=== PATIENT | male | born 1980 | race Caucasian/White ===

== ENCOUNTER 2022-03-12 08:44 | Emergency (ER) | payer SELFPAY ==
[2022-03-12 09:19] LABS: Absolute Lymphocytes (CBC) 1.2 K/uL (0.7-4.9); Hematocrit 41.5 % (39.6-49.0); Lymphocytes % 23.5 % (15.3-44.8); MPV 8.5 fL (7.6-11.3); RBC Red Blood Cell Count 4.61 M/uL (4.33-5.43)
[2022-03-12 09:21] LABS: Protime INR 0.92
[2022-03-12 09:27] LABS: Albumin 3.3 g/dL (3.4-5.0); Bilirubin Direct 0.1 mg/dL (0-0.2); Bilirubin Total 0.3 mg/dL (0.2-1.0); Potassium 3.7 mmol/L (3.5-5.1); Protein, Total 6.5 g/dL (6.4-8.2); Troponin High Sensitivity 13.4 pg/mL (<58.9)
[2022-03-12 09:56] LABS: SARS-COV-2 RT PCR NEGATIVE (NEGATIVE)
--- NOTE | 2022-03-12 10:14 | RAD REPORT ---
EXAM DESCRIPTION: Yahir Single View03/12/2022 9:48 am CLINICAL HISTORY: Chest pain COMPARISON: none FINDINGS: The lungs appear clear of acute infiltrate. The heart is normal size IMPRESSION: No acute abnormalities displayed
--- NOTE | 2022-03-12 10:35 | ER ---
Nurse's Notes [facility] Name: Osman Patel Age: 41 yrs Sex: Male : 1980 Arrival Date: 03/12/2022 Time: 08:47 Bed 4 Private MD: Diagnosis: Chest pain, unspecified Presentation: 03/12 08:58 Chief complaint: EMS states: pt c/o chest pain since last night , worse this morning, iw he was pale and clammy on scene, reports pain as discomfort and pressure, no medical hx , gave ASA 81 and 1 SL nitro, fluids infusing. Coronavirus screen: At this time, the client does not indicate any symptoms associated with coronavirus-19. Ebola Screen: Patient negative for fever greater than or equal to 101.5 degrees Fahrenheit, and additional compatible Ebola Virus Disease symptoms Patient denies exposure to infectious person. Patient denies travel to an Ebola-affected area in the 21 days before illness onset. No symptoms or risks identified at this time. Initial Sepsis Screen: Does the patient meet any 2 criteria? No. Patient's initial sepsis screen is negative. Does the patient have a suspected source of infection? No. Patient's initial sepsis screen is negative. Risk Assessment: Do you want to hurt yourself or someone else? Patient reports no desire to harm self or others. Onset of symptoms was March 11, 2022. 08:58 Method Of Arrival: EMS: [facility] iw 08:58 Acuity: ALEJANDRA 2 iw 09:00 Care prior to arrival: Medication(s) given: ASA, 81 mg, x 1, Normal saline infusion, iw 500 mL, Nitroglycerin, 0.4 mg SL x 1, IV initiated. 18 GA, in the left antecubital area. Historical: - Allergies: 09:00 No Known Allergies; iw - Home Meds: 09:00 None [Active]; iw - PMHx: 09:00 None; iw - PSHx: 09:00 None; iw - Immunization history:: Client reports having NOT received the Covid vaccine. - Social history:: Smoking status: Patient/guardian denies using tobacco, the patient reports quitting approximately 2 years ago. Screenin:17 [facility] ED Fall Risk Assessment (Adult) History of falling in the last 3 months, iw including since admission No falls in past 3 months (0 pts). Humpty Dumpty Scale Fall Assessment Tool (age< 18yrs) Age 13 years and above (1 pt). Abuse screen: Denies threats or abuse. Denies injuries from another. Nutritional screening: No deficits noted. Tuberculosis screening: No symptoms or risk factors identified. Fall Risk IV access (20 points). Assessment: 09:00 General: Appears in no apparent distress. Behavior is calm, cooperative. Pain: iw Complains of pain in chest Pain does not radiate. Pain began 1 day ago. Is intermittent. Neuro: Level of Consciousness is awake, alert, obeys commands, Oriented to person, place, time, situation, Moves all extremities. Full function. Cardiovascular: Reports chest pain, Denies lightheadedness, shortness of breath, Patient's skin is warm and dry. Vital Signs: 08:58 BP 102 / 64; Pulse 75; Resp 16; Temp 98.0; Pulse Ox 100% on R/A; iw 10:17 BP 103 / 67; Pulse 63; Resp 16; Pulse Ox 99% on R/A; iw ED Course: 08:47 Patient arrived in ED. eb 08:48 Cal Dawn PA is PHCP. jmm 08:48 Cristiano Cervantes MD is Attending Physician. jmm 09:00 Triage completed. iw 09:00 Arm band placed on. iw 09:01 Initial lab(s) drawn, by me, sent to lab. Maintain EMS IV. Dressing intact. Good blood iw return noted. Site clean \T\ dry. Gauge \T\ site: 18 LAc. 09:08 Dominique Desir, DARNELL is Primary Nurse. ko1 09:15 COVID-19/FLU A+B Sent. ko1 09:50 XRAY Chest (1 view) In Process Unspecified. EDMS 10:23 Radiology exam delayed due to pt refusing ct at this time. sj 10:34 Chuy Crespo MD is Referral Physician. jmm 10:38 Patient has correct armband on for positive identification. Bed in low position. Call ko1 light in reach. Side rails up X 1. Client placed on continuous cardiac and pulse oximetry monitoring. NIBP monitoring applied. surveillance monitor on. 10:38 No provider procedures requiring assistance completed. IV discontinued, intact, ko1 bleeding controlled, No redness/swelling at site. Pressure dressing applied. Patient maintains SpO2 saturation greater than 95% on room air. Administered Medications: No medications were administered Medication: 10:17 VIS not applicable for this client. jayant Outcome: 10:34 Discharge ordered by . hussein 10:38 Discharged to home ambulatory. ko1 10:38 Condition: stable 10:38 Discharge instructions given to patient, Instructed on discharge instructions, follow up and referral plans. Demonstrated understanding of instructions, follow-up care. 10:44 Patient left the ED. ko1 Signatures: Dispatcher [employer] EDMS Cal Dawn PA PA jmm Jones, Susan sj Williams, Irene, RN RN Kiana John Kathy, RN RN ko1
--- NOTE | 2022-03-12 10:35 | EDPHYS ---
Physician Documentation [facility] Name: Osman Patel Age: 41 yrs Sex: Male : 1980 Arrival Date: 03/12/2022 Time: 08:47 Bed 4 Private MD: ED Physician Cristiano Cervantes HPI: 03/12 08:48 This 41 yrs old Male presents to ER via EMS with complaints of Chest Pain. m 08:48 The patient or guardian reports chest pain that is located primarily in the substernal [facility] area. Onset: gradually, last night. The pain does not radiate. Associated signs and symptoms: Pertinent negatives: shortness of breath. The chest pain is described as aching. Is a 41-year-old male with no known chronic medical conditions presents emerged department with complaints of substernal chest pain beginning last night. Patient states that this intensified while at work earlier today. Patient denies shortness of breath. Denies any cardiac history. Denies family history. Patient states that he does vape and quit smoking 2 years ago.. Historical: - Allergies: 09:00 No Known Allergies; iw - Home Meds: 09:00 None [Active]; iw - PMHx: 09:00 None; iw - PSHx: 09:00 None; iw - Immunization history:: Client reports having NOT received the Covid vaccine. - Social history:: Smoking status: Patient/guardian denies using tobacco, the patient reports quitting approximately 2 years ago. ROS: 08:48 Constitutional: Negative for fever, chills, and weight loss. jmm 08:48 Cardiovascular: Positive for chest pain. 08:48 All other systems are negative. Exam: 08:48 Constitutional: This is a well developed, well nourished patient who is awake, alert, jmm and in no acute distress. Head/Face: atraumatic. Eyes: EOMI, no conjunctival erythema appreciated ENT: Moist Mucus Membranes Neck: Trachea midline, Supple Chest/axilla: Normal chest wall appearance and motion. Cardiovascular: Regular rate and rhythm. No edema appreciated Respiratory: Normal respirations, no respiratory distress appreciated Abdomen/GI: Non distended Back: Normal ROM Skin: General appearance color normal MS/ Extremity: Moves all extremities, no obvious deformities appreciated, no edema noted to the lower extremities Neuro: Awake and alert Psych: Behavior is normal, Mood is normal, Patient is cooperative and pleasant Vital Signs: 08:58 BP 102 / 64; Pulse 75; Resp 16; Temp 98.0; Pulse Ox 100% on R/A; iw 10:17 BP 103 / 67; Pulse 63; Resp 16; Pulse Ox 99% on R/A; iw MDM: 08:48 Patient medically screened. [facility] 10:33 Data reviewed: vital signs, nurses notes. Counseling: I had a detailed discussion with [facility] the patient and/or guardian regarding: the historical points, exam findings, and any diagnostic results supporting the discharge/admit diagnosis, lab results, radiology results. Refusal of service: The patient/guardian displays adequate decision making capability and despite a detailed discussion of alternatives, benefits, risks, and consequences refuses: CT Scan, Repeat troponin. 16:07 Counseling: I had a detailed discussion with the patient and/or guardian regarding: the [facility] need for outpatient follow up. 03/12 08:48 Order name: Basic Metabolic Panel; Complete Time: 09:28 [facility] 03/12 08:48 Order name: CBC with Diff; Complete Time: 09:22 [facility] 03/12 08:48 Order name: D-Dimer; Complete Time: 10:24 [facility] 03/12 08:48 Order name: LFT's; Complete Time: 09:28 [facility] 03/12 08:48 Order name: Magnesium; Complete Time: 09:28 [facility] 03/12 08:48 Order name: NT PRO-BNP; Complete Time: 09:28 [facility] 03/12 08:48 Order name: PT-INR; Complete Time: 10:24 [facility] 03/12 08:48 Order name: Troponin HS; Complete Time: 09:28 [facility] 03/12 08:48 Order name: XRAY Chest (1 view); Complete Time: 10:24 [facility] 03/12 08:48 Order name: EKG; Complete Time: 08:49 [facility] 03/12 08:48 Order name: Cardiac monitoring; Complete Time: 09:01 [facility] 03/12 08:48 Order name: EKG - Nurse/Tech; Complete Time: 09:01 [facility] 03/12 08:56 Order name: COVID-19/FLU A+B; Complete Time: 09:57 [facility] 03/12 08:48 Order name: IV Saline Lock; Complete Time: 09:01 [facility] 03/12 08:48 Order name: Labs collected and sent; Complete Time: 09:01 [facility] 03/12 08:48 Order name: O2 Per Protocol; Complete Time: 09: [facility] 03/12 08:48 Order name: O2 Sat Monitoring; Complete Time: 09: [facility] Administered Medications: No medications were administered Disposition: 16:57 Co-signature as Attending Physician, Cristiano Cervantes MD I agree with the assessment and rt plan of care. Disposition Summary: 03/12/22 10:34 Discharge Ordered Location: Home [facility] Condition: Stable jmm Diagnosis - Chest pain, unspecified jmm Followup: [facility] - With: Chuy Crespo MD - When: 1 - 2 days - Reason: Recheck today's complaints, Continuance of care, Re-evaluation by your physician Discharge Instructions: - Discharge Summary Sheet jmm - Nonspecific Chest Pain, Adult jmm Forms: - Medication Reconciliation Form [facility] - Thank You Letter [facility] - Antibiotic Education [facility] - Prescription Opioid Use [facility] - Work release form eb Signatures: Dispatcher [employer] Cal Watson PA PA jmm Williams, Irene, RN RN Cristiano Urban MD MD rt
[2022-03-12 10:48] VITALS: TEMP 98
[2022-03-12 10:50] VITALS: BP 103/67; O2SAT 99
--- NOTE | 2022-03-14 15:56 | EKG ---
Test Date: 2022-03-12 Test Time: 08:55:42 [employer]: CORNELIUS MEASUREMENT RESULTS: Intervals: Rate: 64 AR: 192 QRSD: 94 QT: 346 QTc: 356 [place]: P: 64 AR: 192 QRS: 23 T: 36 INTERPRETIVE STATEMENTS: Normal sinus rhythm Cannot rule out Anterior infarct, age undetermined Abnormal ECG No previous ECG available for comparison Electronically Signed On 03-14-22 15:54:57 [employer]ICA[employer] BUSINESS ANALYST by Chuy Crespo
== END 2022-03-12 10:44 | disposition home or self-care (01) ==
LOC: ER 08:44
DX: R07.9 Chest pain, unspecified (principal)
CPT/HCPCS: 0240U; 36415; 71045; 80048; 80076; 83735; 83880; 84484; 85025; 85379; 85610; 93005; 99284